=== PATIENT | male | born 1970 | race Hispanic/Latino ===

== ENCOUNTER 2023-09-12 21:45 | Emergency (ER) | payer SELFPAY ==
[2023-09-12] VITALS (7 sets, daily range): BP systolic 122–141; BP diastolic 74–86
[2023-09-13] VITALS: BP 121/81
[2023-09-13 00:15] VITALS: BP 135/73
[2023-09-13 00:30] VITALS: BP 133/79
[2023-09-13] MEDS ORDERED: PEPCID40 MG PO (00:38)
[2023-09-13 00:45] VITALS: BP 121/73
[2023-09-13 01:00] VITALS: BP 129/81
== END 2023-09-13 01:00 | disposition home or self-care (01) | DRG 392 ==
LOC: ED 21:45 → EDBD 21:45 → ED 22:44
DX: K21.9 Gastro-esophageal reflux disease without esophagitis (principal)

== ENCOUNTER 2024-03-01 10:23 | Emergency (ER) | payer SELFPAY ==
[2024-03-01] VITALS (7 sets, daily range): BP systolic 103–132; BP diastolic 52–76
[~2024-03-01] VITALS: Ht 152.4 cm; Wt 90.0 kg
[~2024-03-01 10:23] MED LIST: AMOXICILLIN250 M1; ANTIVERT PO; ASPIRIN CHEWABL81 MG PO; ATORVASTATIN CA10 MG PO; ATORVASTATIN CA80 MG PO; BACTRIM DS1 TAB PO; BAYER ASPIRIN E81 MG PO; BENADRYL 50MG C50 MG PO; BENADRYL25 M1 PO; BUSPIRONE5 MG PO; CELEXA20 M1 PO; CHERATUSSIN PO; CIPROFLOXACN500 MG PO; CITRATE OF MEGNESIA PO; CYCLOBENZAPRIN7.5 M1 PO; DOXYCYCL HYC100 MG PO; FLEXERIL PO; FLEXERIL5 M1 PO; FLUCONAZOLE150 MG PO; FUROSEMIDE20 MG PO; HYDROCO/APAP1 TA9 PO; HYDROXYZ HCL25 MG PO; IBUPROFEN600 MG PO; IMODIUM A-D2 M3 PO; LASIX 20 MG TAB20 MG PO; LASIX20 MG PO; LIDOCAINE PATCH 55 % SD; LIPITOR20 MG PO; LIPITOR80 M1 PO; LISINOPRIL10 MG PO; LOPRESSOR25 M1 PO; MEDDOSEPAK PO; METOPROL TAR25 MG PO; METRONIDAZOLE500 MG PO; MIRALAX17 GM PO; NAPROSYN500 MG PO; NAPROXEN500 MG PO; NEOMYCIN/POLYMY1 SUS IO; NITROSTAT0.4 MG SL; NO HOMEMEDS; PEPCID20 MG PO; PEPCID40 MG PO; PREDNISONE10 MG PO; PRILOSEC20 MG/CAP PO; PROAIR HFA108 MCG/AC PO; PROTONIX40 MG PO; RANITIDINE 150150 MG PO; ROBITUSSIN AC10 ML PO; SOD CHLORIDE1 G2 OD; SOD CHLORIDE1 G2 PO; SOD CHLORIDE1 GM OD; TAM75CAP PO; TAMSULOSIN0.4 MG PO; TESSALON PER100 MG PO; TRAMADOL HYDROC50 M1 PO; ULTRAM50 M1 PO; ULTRAM50 MG PO; ZITHROMAX250 MG PO; ZOLOFT25 MG PO; ZPAK PO
[2024-03-01] MEDS ORDERED: METHOCARBAMOL 500 MG/TAB PO ONE (12:00)
[2024-03-01] MEDS ORDERED: traMADol HCL 50 MG/TAB PO ONE (12:00)
[2024-03-01] MEDS ORDERED: TRAMADOL HYDROC50 M1 PO (12:01)
[2024-03-01] MEDS ORDERED: FLEXERIL5 M1 PO (12:01)
[2024-03-01] MEDS ORDERED: PREDNISONE50 MG PO (12:02)
== END 2024-03-01 12:20 | disposition home or self-care (01) | DRG 552 ==
LOC: ED 10:23
DX: M54.50 Low back pain, unspecified (principal); I10 Essential (primary) hypertension; E11.9 Type 2 diabetes mellitus without complications

== ENCOUNTER 2024-03-09 06:05 | Emergency (ER) | payer SELFPAY ==
[~2024-03-09] VITALS: Ht 152.4 cm; Wt 79.0 kg
[~2024-03-09 06:05] MED LIST changes: +PREDNISONE50 MG PO
[2024-03-09 07:02] VITALS: BP 131/81
[2024-03-09 07:07] LABS: BASO% 0.3 % (0-3); EOS% 1.5 % (0-8); HEMATOCRIT 44.7 % (39.0-50.0); LYMPH% 41.8 % (15-41); MEAN CELL VOLUME 89.2 fL CALC (80.0-100.0); MEAN CORPUSCULAR HGB 31.9 pG CALC (26.0-32.0); MEAN CORPUSCULAR HGB CONC 35.8 g/dL CAL (32.0-36.0); MONO% 9.5 % (2-13); NEUT# 3.56 thou/uL (1.82-7.42); NEUT% 45.9 % (42-76); RED BLOOD COUNT 5.01 mill/uL (4.70-6.10); RED CELL DISTRI WIDTH 11.9 % (11.5-15.5)
[2024-03-09 07:28] LABS: ALBUMIN 4.2 g/dL (3.2-5.0); ALKALINE PHOSPHATASE 111 u/l (38-126); ANION GAP 8 (6-22 (CALC)); BILIRUBIN, TOTAL 1.4 mg/dL (0.2-1.3); BUN 12 mg/dL (9-20); BUN/CREATININE RATIO 21 (12-20 (CALC)); CARBON DIOXIDE 22 mmol/l (22-30); CHLORIDE 111 mmol/l (95-108); CREATININE 0.6 mg/dL (0.7-1.3); ESTIMATED GFR 116 ML/MIN (>=90 (CALC)); POTASSIUM 3.5 mmol/l (3.5-5.1); SGOT/AST 43 u/l (17-59); SODIUM 137 mmol/l (137-146); TOTAL PROTEIN 6.9 g/dL (6.3-8.2)
[2024-03-09 07:30] VITALS: BP 111/70
[2024-03-09] MEDS ORDERED: TAM75CAP PO (07:46)
[2024-03-09 08:00] VITALS: BP 120/79
[2024-03-09 08:12] VITALS: BP 120/79
== END 2024-03-09 08:13 | disposition home or self-care (01) | DRG 195 ==
LOC: ED 06:05
PROVIDERS: Emergency Medicine
DX: J10.1 Influenza due to other identified influenza virus with other respiratory manifestations (principal); I10 Essential (primary) hypertension; E11.9 Type 2 diabetes mellitus without complications; Z20.822 Contact with and (suspected) exposure to COVID-19

== ENCOUNTER 2024-05-07 10:59 | Emergency (ER) | payer SELFPAY ==
[~2024-05-07] VITALS: Ht 152.4 cm; Wt 99.7 kg
[2024-05-07 11:09] VITALS: BP 132/76
[2024-05-07 11:30] VITALS: BP 121/69
[2024-05-07] MEDS ORDERED: traMADol HCL 50 MG/TAB PO ONE (11:40)
[2024-05-07] MEDS ORDERED: DEXAMETHASONE SOD. PHOSPHATE 10 MG/ML VIAL IM ONE (11:40)
[2024-05-07 11:45] VITALS: BP 110/66
[2024-05-07] MEDS ORDERED: CYCLOBENZAPRINE10 MG PO (12:51)
[2024-05-07] MEDS ORDERED: TRAMADOL HYDROC50 M1 PO (12:51)
[2024-05-07 13:12] VITALS: BP 110/66
== END 2024-05-07 13:12 | disposition home or self-care (01) | DRG 313 ==
LOC: ED 10:59
DX: R07.89 Other chest pain (principal); I10 Essential (primary) hypertension; E11.9 Type 2 diabetes mellitus without complications; K76.0 Fatty (change of) liver, not elsewhere classified

== ENCOUNTER 2024-06-28 23:24 | Observation (INO) | payer SELFPAY ==
[~2024-06-28] VITALS: Ht 152.4 cm; Wt 82.2 kg
[~2024-06-28 23:24] MED LIST changes: +CYCLOBENZAPRINE10 MG PO; +METHOCARBAMOL500 MG PO; +NITROFURANTN100 MG PO; +ONDANSETRON4 MG PO; +PROTONIX40 M2 PO
[2024-06-29] VITALS (17 sets, daily range): BP systolic 75–134; BP diastolic 35–84
[2024-06-29] MEDS ORDERED: ATORVASTATIN CA40 MG PO (01:11)
[2024-06-29] MEDS ORDERED: METFORMIN HCL500 M1 PO (01:14)
[2024-06-29] MEDS ORDERED: SINGULAIR10 MG PO (01:14)
[2024-06-29] MEDS ORDERED: METHOCARBAMOL500 MG PO (01:15)
[2024-06-29] MEDS ORDERED: TAM75CAP PO (01:15)
[2024-06-29] MEDS ORDERED: BUTALBITAL-APAP-CAFFEINE 50-325-40 TAB PO ONE (01:40)
[2024-06-29 02:05] LABS: BASO% 0.6 % (0-3); EOS% 1.7 % (0-8); HEMATOCRIT 39.6 % (39.0-50.0); HEMOGLOBIN 14.6 g/dl (14.0-18.0); IMMATURE GRANULOCYTES 0.2 % (0.0-5.0); LYMPH% 50.1 % (15-41); MEAN CELL VOLUME 87.6 fL CALC (80.0-100.0); MEAN CORPUSCULAR HGB 32.3 pG CALC (26.0-32.0); MEAN CORPUSCULAR HGB CONC 36.9 g/dL CAL (32.0-36.0); MONO% 12.9 % (2-13); NEUT# 1.88 thou/uL (1.82-7.42); NEUT% 34.5 % (42-76); RED BLOOD COUNT 4.52 mill/uL (4.70-6.10); RED CELL DISTRI WIDTH 11.6 % (11.5-15.5)
[2024-06-29 02:27] LABS: ALBUMIN 4.3 g/dL (3.2-5.0); CREATININE 0.6 mg/dL (0.7-1.3)
[2024-06-29 02:40] LABS: BILIRUBIN, TOTAL 0.8 mg/dL (0.2-1.3); POTASSIUM 4.1 mmol/l (3.5-5.1)
[2024-06-29] MEDS ORDERED: SODIUM CHLORIDE 0.9% 1,000 ML IV ONE (02:50)
[2024-06-29 03:09] LABS: ALBUMIN 4.2 g/dL (3.2-5.0); BILIRUBIN, TOTAL 0.8 mg/dL (0.2-1.3); CREATININE 0.6 mg/dL (0.7-1.3); POTASSIUM 4.3 mmol/l (3.5-5.1); TOTAL PROTEIN 6.7 g/dL (6.3-8.2)
[2024-06-29 04:48] LABS: ALBUMIN 3.7 g/dL (3.2-5.0); BILIRUBIN, TOTAL 0.8 mg/dL (0.2-1.3); CREATININE 0.6 mg/dL (0.7-1.3); POTASSIUM 4.1 mmol/l (3.5-5.1); TOTAL PROTEIN 6.1 g/dL (6.3-8.2)
[2024-06-29] MEDS ORDERED: FAMOTIDINE 10MG/ML 2ML SDV IV PRN (06:35)
[2024-06-29] MEDS ORDERED: ONDANSETRON 4 MG/TAB ODT PO PRN (06:35)
[2024-06-29] MEDS ORDERED: IBUPROFEN 800 MG/TAB PO PRN (06:35)
[2024-06-29] MEDS ORDERED: ONDANSETRON HCl 4 MG/2 ML SDV IV PRN (06:35)
[2024-06-29] MEDS ORDERED: SODIUM CHLORIDE 0.9% 1,000 ML IV PRN (06:35)
[2024-06-29] MEDS ORDERED: Polyethylene Glycol 3350 17 GM/PKT PO PRN (06:35)
[2024-06-29] MEDS ORDERED: ALUM & MAG HYDROX-SIMETHICONE 30 ML PO PRN (06:35)
[2024-06-29] MEDS ORDERED: LIPITOR80 M1 PO (11:06)
[2024-06-29 11:28] LABS: URINE BILIRUBIN - DIPSTICK Negative (NEGATIVE); URINE BLOOD DIPSTICK Negative (NEGATIVE); URINE COLOR Yellow; URINE GLUCOSE - DIPSTICK Negative (NEGATIVE); URINE KETONE Negative (NEGATIVE); URINE LEUK ESTERASE Negative (NEGATIVE); URINE NITRITE - DIPSTICK Negative (Negative); URINE PROTEIN - DIPSTICK Negative (NEG-TRACE); URINE UROBILINOGEN - DIPSTICK 0.2 E.U./dL (0.2)
[2024-06-29] MEDS ORDERED: metFORMIN HYDROCHLORIDE 500 MG/TAB PO SCH (13:00)
[2024-06-29] MEDS ORDERED: MONTELUKAST SODIUM 10 MG/TAB PO SCH (13:00)
[2024-06-29] MEDS ORDERED: ASPIRIN EC 81 MG/TAB PO SCH (13:00)
[2024-06-29] MEDS ORDERED: SODIUM CHLORIDE 1 GM/TAB TAB PO SCH (14:00)
[2024-06-29] MEDS ORDERED: FUROSEMIDE 20 MG/TAB PO SCH (14:00)
[2024-06-29] MEDS ORDERED: ATORVASTATIN CALCIUM 40 MG/TAB PO SCH (21:00)
[2024-06-29] MEDS ORDERED: OSELTAMIVIR PHOSPHATE 75 MG/TAB CAP PO SCH (21:45)
[2024-06-29] MEDS ORDERED: ACETAMINOPHEN 325 MG/TAB PO PRN (22:35)
[2024-06-30] VITALS (9 sets, daily range): BP systolic 108–125; BP diastolic 61–71
[2024-06-30 05:04] LABS: BASO% 0.5 % (0-3); EOS% 1.5 % (0-8); HEMATOCRIT 41.6 % (39.0-50.0); HEMOGLOBIN 15.6 g/dl (14.0-18.0); LYMPH% 52.3 % (15-41); MEAN CORPUSCULAR HGB 32.2 pG CALC (26.0-32.0); MEAN CORPUSCULAR HGB CONC 37.5 g/dL CAL (32.0-36.0); MONO% 15.2 % (2-13); NEUT# 1.2 thou/uL (1.82-7.42); NEUT% 30.5 % (42-76); RED BLOOD COUNT 4.84 mill/uL (4.70-6.10); RED CELL DISTRI WIDTH 11.6 % (11.5-15.5)
[2024-06-30 05:09] LABS: ALBUMIN 4.2 g/dL (3.2-5.0); CREATININE 0.6 mg/dL (0.7-1.3); MAGNESIUM 1.9 mg/dL (1.6-2.3); TOTAL PROTEIN 6.7 g/dL (6.3-8.2)
[2024-06-30] MEDS ORDERED: ONDANSETRON HCl 4 MG/2 ML SDV IV PRN (06:00)
[2024-06-30] MEDS ORDERED: SODIUM CHLORIDE 1 GM/TAB TAB PO SCH (09:00)
[2024-07-01 04:11] VITALS: BP 93/49
[2024-07-01 05:07] LABS: BASO% 0.5 % (0-3); EOS% 1.9 % (0-8); HEMATOCRIT 40.4 % (39.0-50.0); HEMOGLOBIN 14.8 g/dl (14.0-18.0); LYMPH% 45.6 % (15-41); MEAN CELL VOLUME 87.8 fL CALC (80.0-100.0); MEAN CORPUSCULAR HGB 32.2 pG CALC (26.0-32.0); MEAN CORPUSCULAR HGB CONC 36.6 g/dL CAL (32.0-36.0); MONO% 16.3 % (2-13); NEUT# 1.47 thou/uL (1.82-7.42); NEUT% 35.7 % (42-76); RED BLOOD COUNT 4.6 mill/uL (4.70-6.10); RED CELL DISTRI WIDTH 11.8 % (11.5-15.5)
[2024-07-01 05:20] LABS: ALBUMIN 3.6 g/dL (3.2-5.0); CREATININE 0.7 mg/dL (0.7-1.3); MAGNESIUM 1.9 mg/dL (1.6-2.3); POTASSIUM 4.3 mmol/l (3.5-5.1)
[2024-07-01 07:00] VITALS: BP 107/51
[2024-07-01] MEDS ORDERED: SOD CHLORIDE1 GM PO (09:51)
[2024-07-01] MEDS ORDERED: FUROSEMIDE20 MG PO (09:51)
[2024-07-01] MEDS ORDERED: ZOFRAN4 MG/TAB PO (09:53)
[2024-07-01 10:58] VITALS: BP 120/68
== END 2024-07-01 14:38 | disposition home or self-care (01) | DRG 645 ==
LOC: ED 23:24 → ED-I 06-29 06:20 → ED 06-29 06:36 → MS2 06-29 06:37
PROVIDERS: Internal Medicine; Nurse Practitioner Family; ADMIT Internal Medicine; ATTEND Internal Medicine
DX: E22.2 Syndrome of inappropriate secretion of antidiuretic hormone (principal); J10.1 Influenza due to other identified influenza virus with other respiratory manifestations; I10 Essential (primary) hypertension; E11.9 Type 2 diabetes mellitus without complications; E78.5 Hyperlipidemia, unspecified; K76.0 Fatty (change of) liver, not elsewhere classified; K21.9 Gastro-esophageal reflux disease without esophagitis; F41.9 Anxiety disorder, unspecified; Z87.891 Personal history of nicotine dependence; Z79.84 Long term (current) use of oral hypoglycemic drugs; Z20.822 Contact with and (suspected) exposure to COVID-19
CPT/HCPCS: G0378

== ENCOUNTER 2024-09-28 23:49 | Emergency (ER) | payer SELFPAY ==
[~2024-09-28] VITALS: Ht 152.4 cm; Wt 84.0 kg
[~2024-09-28 23:49] MED LIST changes: +ATORVASTATIN CA40 MG PO; +METFORMIN HCL500 M1 PO; +SINGULAIR10 MG PO; +SOD CHLORIDE1 GM PO; +ZOFRAN4 MG/TAB PO
[2024-09-29 01:09] LABS: BASO% 0.1 % (0-3); EOS% 0.4 % (0-8); HEMATOCRIT 42.4 % (39.0-50.0); HEMOGLOBIN 15.2 g/dl (14.0-18.0); IMMATURE GRANULOCYTES 0.2 % (0.0-5.0); LYMPH% 20.2 % (15-41); MEAN CELL VOLUME 87.4 fL CALC (80.0-100.0); MEAN CORPUSCULAR HGB 31.3 pG CALC (26.0-32.0); MEAN CORPUSCULAR HGB CONC 35.8 g/dL CAL (32.0-36.0); MONO% 9.9 % (2-13); NEUT# 8.15 thou/uL (1.82-7.42); NEUT% 69.2 % (42-76); RED BLOOD COUNT 4.85 mill/uL (4.70-6.10); RED CELL DISTRI WIDTH 12.1 % (11.5-15.5)
[2024-09-29 01:29] LABS: ALBUMIN 4.3 g/dL (3.2-5.0); CREATININE 0.7 mg/dL (0.7-1.3); POTASSIUM 3.5 mmol/l (3.5-5.1); TOTAL PROTEIN 7.2 g/dL (6.3-8.2)
[2024-09-29 01:38] LABS: BILIRUBIN, TOTAL 2.5 mg/dL (0.2-1.3)
[2024-09-29] MEDS ORDERED: SODIUM CHLORIDE 0.9% 1,000 ML IV ONE ×2 (02:10→03:25)
[2024-09-29 03:14] LABS: URINE BILIRUBIN - DIPSTICK Negative (NEGATIVE); URINE BLOOD DIPSTICK Negative (NEGATIVE); URINE COLOR Yellow; URINE GLUCOSE - DIPSTICK Negative (NEGATIVE); URINE KETONE Negative (NEGATIVE); URINE LEUK ESTERASE Negative (NEGATIVE); URINE NITRITE - DIPSTICK Negative (Negative); URINE PH 5.5 (4.5-8.0); URINE PROTEIN - DIPSTICK Negative (NEG-TRACE); URINE SPECIFIC GRAVITY 1.015; URINE UROBILINOGEN - DIPSTICK 0.2 E.U./dL (0.2)
[2024-09-29] MEDS ORDERED: DOXYCYCLINE HYCLATE 100 MG/CAP PO ONE (04:35)
[2024-09-29 04:36] LABS: ALBUMIN 3.9 g/dL (3.2-5.0); BILIRUBIN, TOTAL 2.4 mg/dL (0.2-1.3); CREATININE 0.8 mg/dL (0.7-1.3); POTASSIUM 3.1 mmol/l (3.5-5.1); TOTAL PROTEIN 6.8 g/dL (6.3-8.2)
[2024-09-29] MEDS ORDERED: POTASSIUM CHLORIDE 20 MEQ/TAB PO ONE (04:45)
[2024-09-29] MEDS ORDERED: DOXYCYCL HYC100 M4 PO (05:01)
[2024-09-29] MEDS ORDERED: TAM75CAP PO (05:01)
[2024-09-29] MEDS ORDERED: OSELTAMIVIR PHOSPHATE 75 MG/TAB CAP PO ONE (05:05)
[2024-09-29 06:08] VITALS: BP 128/71
== END 2024-09-29 06:08 | disposition home or self-care (01) | DRG 194 ==
LOC: ED 23:49
PROVIDERS: Family Medicine
DX: J10.00 Influenza due to other identified influenza virus with unspecified type of pneumonia (principal); E22.2 Syndrome of inappropriate secretion of antidiuretic hormone; I10 Essential (primary) hypertension; E11.9 Type 2 diabetes mellitus without complications; F41.9 Anxiety disorder, unspecified; Z79.84 Long term (current) use of oral hypoglycemic drugs; Z20.822 Contact with and (suspected) exposure to COVID-19

== ENCOUNTER 2024-10-02 05:09 | Emergency (ER) | payer SELFPAY ==
[~2024-10-02] VITALS: Ht 152.4 cm; Wt 84.0 kg
[~2024-10-02 05:09] MED LIST changes: +DOXYCYCL HYC100 M4 PO
[2024-10-02 06:26] VITALS: BP 129/76
== END 2024-10-02 06:07 | disposition home or self-care (01) | DRG 194 ==
LOC: ED 05:09
DX: J10.1 Influenza due to other identified influenza virus with other respiratory manifestations (principal); E22.2 Syndrome of inappropriate secretion of antidiuretic hormone; E11.9 Type 2 diabetes mellitus without complications; I10 Essential (primary) hypertension; F41.9 Anxiety disorder, unspecified; Z79.84 Long term (current) use of oral hypoglycemic drugs